=== PATIENT | female | born 1950 | race Two or more races ===

== ENCOUNTER 2017-01-29 15:43 | Emergency (ER) | payer MEDICARE, MEDICAID ==
[2017-01-29 16:01] VITALS: TEMP 98.6; BMI 26.6
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
[2017-01-29 18:01] VITALS: BP 126/78; PULSE 76; RESP 18; O2SAT 98
== END 2017-01-29 18:01 | disposition home or self-care (01) ==
LOC: ED 15:43
DX: R51 Headache (principal); V49.49XA Driver injured in collision with other motor vehicles in traffic accident, initial encounter; Y92.410 Unspecified street and highway as the place of occurrence of the external cause